=== PATIENT | male | born 1970 | race African-American/Black ===

== ENCOUNTER 2023-02-11 03:59 | Emergency (ER) | payer SELFPAY ==
[2023-02-11] MEDS ORDERED: Ondansetron PF 4 MG/2 ML Vial ONE ×2 (04:30→06:30)
[2023-02-11 04:56] LABS: #Lymphocytes 1.9 thou/uL (1.20-3.40); #Monocytes 0.6 thou/uL (0.11-0.59); #Neutrophils 8.8 thou/uL (1.40-6.50); %Basophils 0.1 % (0.0-1.0); %Eosinophils 0.1 % (0.0-10.0); %Lymphocytes 16.5 % (21.0-51.0); %Monocytes 5.5 % (0.0-10.0); %Neutrophils 77.8 % (42.0-75.0); Hemoglobin 18.4 g/dL (14.0-18.0); Mean Corpuscular HGB CONC 32.5 g/dL (32.0-36.0); Mean Corpuscular Hemoglobin 31.1 pg (27.0-31.0); Mean Corpuscular Volume 95.8 fl (78.0-98.0); Mean Platelet Volume 8.2 fL (7.4-10.4); Platelet Count 259 10x3/uL (130-400); RBC Distribution Width 12.7 % (11.5-14.5); Red Blood Cell (RBC) Count 5.91 mill/uL (4.70-6.10); White Blood Cell (WBC) Count 11.3 10x3/uL (4.8-10.8)
[2023-02-11 05:18] LABS: ALT (SGPT) 16 U/L (8-55); AST (SGOT) 20 U/L (5-34); Albumin 5.1 g/dL (3.5-5.0); Alkaline Phosphatase 82 U/L (40-110); BUN (Urea Nitrogen) 26 mg/dL (8.9-20.6); Calc. Creatinine Clearance 0 mL/min (70-130); Calcium 10.5 mg/dL (7.8-10.44); Estimated GFR 44; Globulin 3.9 g/dL (2.4-3.5); Glucose 121 mg/dL (70-105); Lipase 23 U/L (8-78)
[2023-02-11 05:32] LABS: Anion Gap 25 mmol/L (10-20); Carbon Dioxide 37 mmol/L (22-29); Chloride 89 mmol/L (98-107); Potassium 3.1 mmol/L (3.5-5.1); Sodium 148 mmol/L (136-145)
[2023-02-11] MEDS ORDERED: Potassium Chloride 20 MEQ TAB ONE (06:30)
== END 2023-02-11 06:55 | disposition home or self-care (01) ==
LOC: ERS 03:59
DX: N17.9 Acute kidney failure, unspecified (principal); E86.0 Dehydration; E87.0 Hyperosmolality and hypernatremia; E87.6 Hypokalemia; R11.10 Vomiting, unspecified
CPT/HCPCS: 71045; 80053; 83690; 84443; 84484; 85025; 93005; 96374; 96376; J2405